=== PATIENT | female | born 1995 | race American Indian/Alaskan Native ===

== ENCOUNTER 2017-12-05 12:58 | Emergency (ER) | payer OTHER ==
[2017-12-05 13:17] VITALS: BP 123/69
[2017-12-05] MEDS ORDERED: TYLENOL PO ONE (14:07)
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
== END 2017-12-05 15:45 | disposition home or self-care (01) ==
LOC: ED 12:58
DX: S16.1XXA Strain of muscle, fascia and tendon at neck level, initial encounter (principal); S96.911A Strain of unspecified muscle and tendon at ankle and foot level, right foot, initial encounter; V49.9XXA Car occupant (driver) (passenger) injured in unspecified traffic accident, initial encounter; Y93.89 Activity, other specified; Y92.89 Other specified places as the place of occurrence of the external cause; Y99.8 Other external cause status
CPT/HCPCS: 99283